=== PATIENT | male | born 1955 | race Caucasian/White ===

== ENCOUNTER 2020-12-14 13:51 | Emergency (ER) | payer BC, OTHER ==
[2020-12-14 14:26] VITALS: BP 181/72; PULSE 78; TEMP 98.8; BMI 35.2
[2020-12-14 14:49] LABS: BASO % 0.9 % (0-2.0); EOS % 3.6 % (0-4.5); HEMATOCRIT 47.3 % (35.4-49); HEMOGLOBIN 16.2 GM/dl (11.7-16.9); LYMPH % 22.5 % (8-40); MCH 30.5 pg (25.7-33.7); MCHC 34.2 g/dl (32.0-35.9); MEAN CELL VOLUME 89.2 fl (80-96); MEAN PLT VOLUME 7.1 fl (7.5-11.1); MONO % 8.9 % (3.8-10.2); NEUT % 64.1 % (42.8-82.8); PLATELET COUNT 318 K/MM3 (134-434); RDW 13.5 % (11.9-15.9); WHITE BLOOD COUNT 7.9 K/mm3 (4.0-10.8)
[2020-12-14 14:58] LABS: ALBUMIN 4.6 g/dl (3.4-5.0); BILIRUBIN,TOTAL 0.5 mg/dl (0.2-1); CALCIUM 9.5 mg/dl (8.5-10); CREATININE 0.9 mg/dl (0.55-1.3); POTASSIUM 3.5 mmol/L (3.5-5.1)
[2020-12-14 14:59] LABS: INR 1.17 (0.82-1.09)
== END 2020-12-14 15:35 | disposition home or self-care (01) ==
LOC: FER 13:51
DX: R74.01 Elevation of levels of liver transaminase levels (principal); R31.9 Hematuria, unspecified; I10 Essential (primary) hypertension
CPT/HCPCS: 36415; 71045-TC-FY; 80053; 81003; 81015; 82550; 84484; 85025; 85610; 93005; 99285-25; C9803; U0003

== ENCOUNTER → 2024-08-15 | Day surgery (SDC) | payer OTHER, BC ==
[2024-08-08 13:30] VITALS: BMI 34.4
[2024-08-15 11:53] VITALS: BP 117/61; PULSE 65; RESP 14; TEMP 97.9
[2024-08-15 12:00] LABS: BASO % 0.3 % (0-2.0); HEMATOCRIT 47.8 % (35.4-49); LYMPH % 19.5 % (8-40); MCH 29.7 pg (25.7-33.7); MCHC 33.5 g/dl (32.0-35.9); MEAN CELL VOLUME 88.6 fl (80-96); MEAN PLT VOLUME 7.3 fl (7.5-11.1); MONO % 8.2 % (3.8-10.2); PLATELET COUNT 314 10^3/uL (134-434); RBC 5.39 M/mm3 (4.00-5.60); RDW 14.6 % (11.9-15.9); WHITE BLOOD COUNT 7.1 K/mm3 (4.0-10.0)
[2024-08-15 12:05] LABS: INR 0.97 (0.83-1.09); PROTHROMBIN TIME (PATIENT) 11.2 SEC (9.7-13.0)
[2024-08-15 12:15] LABS: CHLORIDE 102 mmol/L (98-107); POTASSIUM 4.2 mmol/L (3.5-5.1); SODIUM 138 mmol/L (136-145)
[2024-08-15 12:17] LABS: ALBUMIN 4.3 g/dl (3.4-5.0); ANION GAP 6 mmol/L (4-13); BLOOD UREA NITROGEN 11.1 mg/dL (7-18); CALCIUM 10.3 mg/dL (8.5-10.1); CO2 30 mmol/L (21-32); GLUCOSE,RANDOM 105 mg/dL (74-106)
[2024-08-15 12:20] LABS: CREATININE 1.1 mg/dL (0.55-1.3); SGOT/AST 106 U/L (15-37); SGPT/ALT 97 U/L (13-61)
[2024-08-15 12:21] LABS: BILIRUBIN,TOTAL 0.5 mg/dL (0.2-1); IRON SERUM 82 ug/dL (50-175)
[2024-08-15 12:22] LABS: TOT PROT 8.4 g/dl (6.4-8.2); TOTAL IRON BINDING CAPACITY 400 ug/dL (250-450)
[2024-08-15 12:23] LABS: ALK PHOS 79 U/L (45-117)
[2024-08-15 12:47] LABS: HEPATITIS B SURFACE AG MATERN NON-REACTIVE (NONREACTIVE)
[2024-08-17 20:07] LABS: MITOCHONDRIAL AB <20.0 Units (0.0-20.0)
== END | disposition home or self-care (01) ==
LOC: JASU-ENDO 04:35
PROVIDERS: ATTEND Internal Medicine Gastroenterology
PROC: 0DBL8ZX Excision of Transverse Colon, Via Natural or Artificial Opening Endoscopic, Diagnostic (ICD-10-PCS; 2024-08-15)
PROC: 0DB98ZX Excision of Duodenum, Via Natural or Artificial Opening Endoscopic, Diagnostic (ICD-10-PCS; 2024-08-15)
PROC: 0DB68ZX Excision of Stomach, Via Natural or Artificial Opening Endoscopic, Diagnostic (ICD-10-PCS; 2024-08-15)
PROC: 0DBP8ZX Excision of Rectum, Via Natural or Artificial Opening Endoscopic, Diagnostic (ICD-10-PCS; principal; 2024-08-15 10:00)
DX: Z12.11 Encounter for screening for malignant neoplasm of colon (principal); D12.8 Benign neoplasm of rectum; K57.30 Diverticulosis of large intestine without perforation or abscess without bleeding; K64.8 Other hemorrhoids; Z86.0100 Personal history of colon polyps, unspecified; K29.20 Alcoholic gastritis without bleeding; K29.50 Unspecified chronic gastritis without bleeding
CPT/HCPCS: 36415; 80053; 82103; 82105; 82390; 82728; 83516; 83540; 83550; 85025; 85610; 86038; 86140; 86705; 86803; 87340; 87517; 88305-TC; 88342-TC

== ENCOUNTER 2025-07-28 10:40 | Emergency (ER) | payer OTHER, BC ==
[2025-07-28 11:11] VITALS: BP 153/69; PULSE 73; RESP 18; TEMP 98.1; BMI 32.7
[2025-07-28 11:33] LABS: ABSOLUTE IMMATURE GRANULOCYTES 0.01 x10^3/uL (0.0-0.031); BASOPHILS # 0.02 x10^3/uL (0.01-0.08); EOSINOPHIL % 3.3 % (0.8-7.0); EOSINOPHILS # 0.22 x10^3/uL (0.04-0.54); MCHC 34.1 g/dl (32.3-36.5); MEAN CELL VOLUME 85.0 fl (79.0-92.2); MEAN PLT VOLUME 9.1 fl (9.4-12.4); MONOCYTE # 0.69 x10^3/uL (0.30-0.82); MONOCYTE % 10.3 % (5.3-12.2); RDW 13.6 % (12.2-16.4)
[2025-07-28 11:57] LABS: ALK PHOS 84 U/L (45-117); CO2 26 mmol/L (21-32); CREATININE 0.8 mg/dl (0.6-1.3); GLUCOSE,RANDOM 125 mg/dl (74-106); SGOT/AST 35 U/L (15-37); SGPT/ALT 15 U/L (7-52); TOT PROT 7.6 g/dl (6.4-8.2)
[2025-07-28 14:16] LABS: HIV INTERPRETATION NEGATIVE (NEGATIVE)
[2025-07-28 14:17] LABS: HCV DIAGNOSTIC IN-HOUSE W/RFLX NON-REACTIVE (NONREACTIVE)
== END 2025-07-28 12:34 | disposition home or self-care (01) ==
LOC: FER 10:40
DX: E83.42 Hypomagnesemia (principal); R42 Dizziness and giddiness; R20.2 Paresthesia of skin; R00.2 Palpitations
CPT/HCPCS: 36415; 80053; 83735; 84484; 85025; 86803; 87389; 93005; 99284-25